=== PATIENT | male | born 1985 | race Caucasian/White ===

== ENCOUNTER 2019-04-06 14:20 | Outpatient (CLI) | payer BC | END 2019-04-06 14:21 | disposition home or self-care (01) | LOC: CTENTCT 14:20 | PROVIDERS: ATTEND Specialist | DX: J32.9 Chronic sinusitis, unspecified (principal) | CPT/HCPCS: 70486 ==

== ENCOUNTER 2019-05-05 07:38 | Day surgery (SDC) | payer BC ==
[2019-05-04 11:24] VITALS: BMI 23.7
[2019-05-05] MEDS ORDERED: AFRIN NASAL MIST 15 ML BOT ONE ×2 (08:07→09:06)
[2019-05-05] MEDS ORDERED: Scopolamine 1.5 mg/72 hour Patch ONE (08:31)
[2019-05-05] MEDS ORDERED: EPINEPHrine 1 MG/ML AMP ONE (09:06)
[2019-05-05] MEDS ORDERED: Lidocaine 1% w/Epinephrine 1:100K 20 ML VIAL ONE (09:06)
[2019-05-05] MEDS ORDERED: Fentanyl 100 MCG/2 ML VIAL ONE ×2 (09:20→10:47)
[2019-05-05] MEDS ORDERED: Ondansetron PF 4 MG/2 ML Vial ONE (09:22)
[2019-05-05] MEDS ORDERED: Dexamethasone 20 MG/5 ML VIAL ONE (09:22)
[2019-05-05] MEDS ORDERED: Lidocaine 1% PF 5 ML VIAL ONE (09:22)
[2019-05-05] MEDS ORDERED: PROPOFOL 200 MG/20 ML VIAL ONE (09:22)
[2019-05-05] MEDS ORDERED: methylPREDNISolone Acetate 40 mg/ml Vial ONE (09:30)
[2019-05-05] MEDS ORDERED: Promethazine HCl 25 MG/ML VIAL ONE (12:09)
--- NOTE | 2019-05-06 09:25 | OP ---
DATE OF PROCEDURE: 05/05/2019 PREOPERATIVE DIAGNOSES: 1. Chronic frontal sinusitis. 2. Chronic ethmoid sinusitis. POSTOPERATIVE DIAGNOSES: 1. Chronic frontal sinusitis. 2. Chronic ethmoid sinusitis. PROCEDURES PERFORMED: 1. Bilateral frontal sinusotomy using extended drill out (Lothrop procedure). 2. Bilateral nasal endoscopy with total ethmoidectomy. 3. Stereotactic image guidance with the use of a landmark stereotactic image guidance. PROCEDURE IN DETAIL: After the patient was identified and brought to the operating room , placed on the operating table in supine position. General endotracheal anesthesia was obtained. The patient was positioned for surgery. The nose was prepped with topical decongestants and was then injected with 1% lidocaine with 1:100,000 epinephrine. Also, topical adrenaline was placed intranasally to facilitate vasoconstriction. The patient had previous sinus surgery with stenosis and new bone formation in the frontal recess bilaterally worse on the left and also had extensive ethmoid disease, ethmoid polypoid disease, and residual shrouds of bone mucosa were removed under endoscopic visualization with the assistance of the landmarks. We then proceeded to address the frontal sinus. There was very thick bony that isolated the frontal sinus both laterally and medially from the nasal cavity and use of alexa, we were able to drill down this bone until we were able to gain access to the frontal sinus. We then enlarged that opening carefully under stereotactic computer-guided imaging. Ultimately, we had large frontal sinusotomies performed and purulence was released and evacuated from each. Also, the ethmoids were addressed at this similar time. We then placed cotton form type steroid impregnated splints in the both frontal sinuses to hopefully facilitate patency and minimize scarring postop. The patient was then extubated and taken to recovery room in stable condition prior to discharge home. Job ID: [id number]
== END 2019-05-05 13:20 | disposition home or self-care (01) ==
LOC: SDC 07:38
PROVIDERS: ATTEND Specialist
PROC: 09BV8ZZ Excision of Left Ethmoid Sinus, Via Natural or Artificial Opening Endoscopic (ICD-10-PCS; principal; 2019-05-05)
PROC: 8E09XBZ Computer Assisted Procedure of Head and Neck Region (ICD-10-PCS; principal; 2019-05-05)
PROC: 09BS8ZZ Excision of Right Frontal Sinus, Via Natural or Artificial Opening Endoscopic (ICD-10-PCS; principal; 2019-05-05)
PROC: 09BT8ZZ Excision of Left Frontal Sinus, Via Natural or Artificial Opening Endoscopic (ICD-10-PCS; principal; 2019-05-05)
PROC: 09BU8ZZ Excision of Right Ethmoid Sinus, Via Natural or Artificial Opening Endoscopic (ICD-10-PCS; principal; 2019-05-05)
DX: J32.8 Other chronic sinusitis (principal); J33.9 Nasal polyp, unspecified; J34.3 Hypertrophy of nasal turbinates; J30.1 Allergic rhinitis due to pollen
CPT/HCPCS: J0171; J0690; J1030; J1100; J2001; J2405; J2550; J2704; J3010

== ENCOUNTER 2020-10-09 16:24 | Inpatient (IN) | payer BC ==
[2020-10-09 17:27] LABS: #Basophils 0.1 thou/uL (0.0-0.2); #Eosinphils 0.1 thou/uL (0.0-0.7); #Lymphocytes 2.2 thou/uL (1.20-3.40); #Monocytes 0.7 thou/uL (0.11-0.59); #Neutrophils 4.7 thou/uL (1.40-6.50); %Basophils 0.8 % (0.0-1.0); %Eosinophils 0.7 % (0.0-10.0); %Lymphocytes 28.4 % (21.0-51.0); %Monocytes 9.2 % (0.0-10.0); %Neutrophils 60.8 % (42.0-75.0); Hemoglobin 14.7 g/dL (14.0-18.0); Mean Corpuscular HGB CONC 33.6 g/dL (32.0-36.0); Mean Corpuscular Hemoglobin 30.7 pg (27.0-31.0); Mean Corpuscular Volume 91.5 fL (78.0-98.0); Mean Platelet Volume 7.6 fL (7.4-10.4); Platelet Count 213 thou/uL (130-400); RBC Distribution Width 11.6 % (11.5-14.5); Red Blood Cell (RBC) Count 4.77 mill/uL (4.70-6.10); White Blood Cell (WBC) Count 7.8 thou/uL (4.8-10.8)
[2020-10-09] MEDS ORDERED: Midazolam HCl 2 mg/2 ml Vial ONE (17:55)
[2020-10-09 17:57] LABS: ALT (SGPT) 34 U/L (8-55); AST (SGOT) 18 U/L (5-34); Alkaline Phosphatase 50 U/L (40-110); Anion Gap 16 mmol/L (10-20); BUN (Urea Nitrogen) 14 mg/dL (8.9-20.6); Bilirubin, Total 0.6 mg/dL (0.2-1.2); Calc. Creatinine Clearance 0 mL/min (70-130); Calcium 8.9 mg/dL (7.8-10.44); Carbon Dioxide 19 mmol/L (22-29); Chloride 105 mmol/L (98-107); Globulin 3.8 g/dL (2.4-3.5); Glucose 82 mg/dL (70-105); Protein, Total 7.8 g/dL (6.0-8.3); Sodium 136 mmol/L (136-145)
[2020-10-09] MEDS ORDERED: Vancomycin 1 GM/200 ML BAG ONE ×2 (17:59→22:01)
[2020-10-09] MEDS ORDERED: cefTRIAXone\\ROCEPHIN 2 GM VIAL ONE (17:59)
[2020-10-09] MEDS ORDERED: Acyclovir Sodium 750 MG in Sodium Chloride 0.9% 250 ML 250 ML IVPB SCH (18:30)
[2020-10-09] MEDS ORDERED: Acyclovir Sodium 850 MG in Sodium Chloride 0.9% 250 ML 250 ML IVPB SCH (18:30)
[2020-10-09] MEDS ORDERED: Haloperidol Lactate 5 MG/ML VIAL ONE (18:57)
[2020-10-09] MEDS ORDERED: Ondansetron PF 4 MG/2 ML Vial IVP PRN (22:11)
[2020-10-09] MEDS ORDERED: Lorazepam 2 MG/ML VIAL SLOW IVP PRN (22:54)
[2020-10-09 23:00] LABS: Acetaminophen Less than 6.0 mcg/mL (10.0-30.0); Alcohol Less than 10 mg/dL (Less than 10); Salicylate Less than 8.0 mg/dL (15.0-30.0)
[2020-10-09 23:20] VITALS: BMI 26.8
[2020-10-10 01:36] LABS: Actual Bicarbonate (HCO3a) 17.6 mEq/L (22-28); Base Excess (BEa) -2.4 mEq/L (-2.0 to +3.0); Calcium, Ionized (arterial) 1.11 mmol/L (1.12-1.30); Carboxyhemoglobin (COHb) 0.8 gm% (0.0-3.0); Hemoglobin (Hb) 15.8 g/dL (14.0-18.0); Potassium - ABG Lab 4.19 mmol/L (3.70-5.30); pH, Arterial 7.54 (7.35-7.45)
[2020-10-10 01:39] LABS: CO2 Tension 21.2 mmHg (35.0-45.0); O2 Tension (PaO2), arterial 26.3 mmHg (80.0-100.0)
[2020-10-10] MEDS ORDERED: Lorazepam 2 MG/ML VIAL SLOW IVP SCH (01:45)
[2020-10-10 01:57] LABS: Hemoglobin 15.7 g/dL (14.0-18.0); Mean Corpuscular HGB CONC 33.7 g/dL (32.0-36.0); Mean Corpuscular Hemoglobin 31.7 pg (27.0-31.0); Mean Corpuscular Volume 94.1 fL (78.0-98.0); Mean Platelet Volume 7.4 fL (7.4-10.4); Platelet Count 241 thou/uL (130-400); RBC Distribution Width 11.7 % (11.5-14.5); Red Blood Cell (RBC) Count 4.94 mill/uL (4.70-6.10); White Blood Cell (WBC) Count 14.6 thou/uL (4.8-10.8)
[2020-10-10 02:06] LABS: Amphetamine Not Detected (NotDetected); Barbiturates Screen Not Detected (NotDetected); Benzodiazepine Screen Not Detected (NotDetected); Cocaine Metabolite Screen Not Detected (NotDetected); Medtox Control Line Valid? VALID (VALID); Medtox Reader # READER 4; Methadone Not Detected (NotDetected); Methamphetamine Not Detected (NotDetected); Opiate Screen Not Detected (NotDetected); Oxycodone Screen Not Detected (NotDetected); Phencyclidine (PCP) Not Detected (NotDetected); THC/Cannabinoid Screen Not Detected (NotDetected); Tricyclic Screen Not Detected (NotDetected)
[2020-10-10 02:21] LABS: Eosinophils 1 % (0-10); Lymphocytes 39 % (21-51); MDiff Complete? YES; Metamyelocyte 1 % (0-0); Monocytes 14 % (0-10); Neutrophil 45 % (42-75); Platelet Morphology Comment Appears Adequate
[2020-10-10 03:13] LABS: Calcium 9.2 mg/dL (7.8-10.44); Glucose 84 mg/dL (70-105)
[2020-10-10 03:17] LABS: Calc. Creatinine Clearance 128 mL/min (70-130)
[2020-10-10 03:18] LABS: BUN (Urea Nitrogen) 13 mg/dL (8.9-20.6); Carbon Dioxide 9 mmol/L (22-29); Chloride 109 mmol/L (98-107); Potassium 4.3 mmol/L (3.5-5.1); Sodium 138 mmol/L (136-145)
[2020-10-10 03:19] LABS: Anion Gap 24 mmol/L (10-20)
[2020-10-10] MEDS ORDERED: Lorazepam 2 MG/ML VIAL SLOW IVP PRN (03:38)
[2020-10-10] MEDS: Acyclovir Sodium 750 MG in Sodium Chloride 0.9% 250 ML 250 ML IVPB SCH ×3 (04:17→19:57)
[2020-10-10 04:32] LABS: Bacteria/HPF None Seen HPF (None Seen); Bilirubin Negative (Negative); Blood, Urine Negative (Negative); Clarity Clear (Clear); Glucose, Urine (Dipstick) Normal (Negative); Ketone, Urine 40 mg/dL (Negative); Leukocyte Negative Leu/uL (Negative); Nitrite Negative (Negative); Protein, Urine (Dipstick) Negative (Neg-Trace); RBC/HPF 0-3 HPF (0-3); Specific Gravity, Urine 1.013 (1.002-1.036); Squamous Epithelial None Seen HPF (0-3); Urobilinogen Normal mg/dL (Less than 2); WBC/HPF None Seen HPF (0-3); pH, Urine 6.5 (5.0-9.0)
[2020-10-10 04:34] LABS: Urine Culture Reflex No No
[2020-10-10] MEDS: Vancomycin 1.5 GRAM/300 ML BAG 1.5 GM in Premix Bag 1 BAG IVPB SCH ×3 (06:03→22:20)
[2020-10-10] MEDS: cefTRIAXone\\ROCEPHIN 2 GM in Sodium Chloride 0.9% 100 ML IVPB SCH (08:25)
[2020-10-10 10:40] LABS: Lactic Acid 1.2 mmol/L (0.5-2.2)
[2020-10-10 10:42] LABS: Anion Gap 16 mmol/L (10-20); BUN (Urea Nitrogen) 12 mg/dL (8.9-20.6); Calc. Creatinine Clearance 146 mL/min (70-130); Calcium 8.9 mg/dL (7.8-10.44); Carbon Dioxide 21 mmol/L (22-29); Chloride 104 mmol/L (98-107); Glucose 91 mg/dL (70-105); Potassium 3.9 mmol/L (3.5-5.1); Sodium 137 mmol/L (136-145)
[2020-10-10 11:03] LABS: Free T4 (Free Thyroxine) 1.07 ng/dL (0.70-1.48); T4 7.9 ug/dL (4.87-11.72)
[2020-10-10] MEDS ORDERED: cefTRIAXone\\ROCEPHIN 2 GM in Sodium Chloride 0.9% 100 ML IVPB SCH (18:00)
[2020-10-10] MEDS: Acetaminophen 325 MG TAB PO PRN (20:20)
[2020-10-11] MEDS ORDERED: VANCOMYCIN 1.25 GM/250 ML BAG 1.25 GM in Premix Bag 1 BAG IVPB SCH ×2 (02:00→10:00)
[2020-10-11] MEDS: Acyclovir Sodium 750 MG in Sodium Chloride 0.9% 250 ML 250 ML IVPB SCH (03:04)
[2020-10-11] MEDS: Acetaminophen 325 MG TAB PO PRN (04:16)
[2020-10-11 08:12] LABS: #Basophils 0.1 thou/uL (0.0-0.2); #Eosinphils 0.4 thou/uL (0.0-0.7); #Lymphocytes 2.8 thou/uL (1.20-3.40); #Monocytes 0.8 thou/uL (0.11-0.59); #Neutrophils 3.2 thou/uL (1.40-6.50); %Basophils 0.9 % (0.0-1.0); %Eosinophils 5.8 % (0.0-10.0); %Lymphocytes 38.8 % (21.0-51.0); %Neutrophils 43.6 % (42.0-75.0); Hemoglobin 14.9 g/dL (14.0-18.0); Mean Corpuscular Hemoglobin 30.5 pg (27.0-31.0); Mean Corpuscular Volume 92.4 fL (78.0-98.0); Mean Platelet Volume 7.5 fL (7.4-10.4); Platelet Count 222 thou/uL (130-400); RBC Distribution Width 11.8 % (11.5-14.5); Red Blood Cell (RBC) Count 4.89 mill/uL (4.70-6.10); White Blood Cell (WBC) Count 7.2 thou/uL (4.8-10.8)
[2020-10-11 08:34] LABS: ALT (SGPT) 36 U/L (8-55); AST (SGOT) 23 U/L (5-34); Alkaline Phosphatase 50 U/L (40-110); Anion Gap 14 mmol/L (10-20); BUN (Urea Nitrogen) 12 mg/dL (8.9-20.6); Bilirubin, Total 0.6 mg/dL (0.2-1.2); CK (CPK) 138 U/L (30-200); Calc. Creatinine Clearance 153 mL/min (70-130); Carbon Dioxide 19 mmol/L (22-29); Chloride 109 mmol/L (98-107); Globulin 3.7 g/dL (2.4-3.5); Glucose 85 mg/dL (70-105); Magnesium 2.2 mg/dL (1.6-2.6); Potassium 4.1 mmol/L (3.5-5.1); Protein, Total 7.7 g/dL (6.0-8.3); Sodium 138 mmol/L (136-145)
[2020-10-11] MEDS: cefTRIAXone\\ROCEPHIN 2 GM in Sodium Chloride 0.9% 100 ML IVPB SCH (09:18)
[2020-10-11 12:39] VITALS: TEMP 98.4
[2020-10-11] MEDS ORDERED: Doxycycline 100 MG CAP PO SCH (21:00)
[2020-10-12] MEDS ORDERED: Enoxaparin Sodium 40 MG/0.4 ML SYRINGE SC SCH (09:00)
== END 2020-10-11 12:52 | disposition home or self-care (01) | DRG 92 ==
LOC: ERS 16:24 → IMCU/EMU 21:12
PROVIDERS: ADMIT Internal Medicine; ATTEND Internal Medicine
PROC: 009U3ZX Drainage of Spinal Canal, Percutaneous Approach, Diagnostic (ICD-10-PCS; principal; 2020-10-09)
DX: G92 Toxic encephalopathy (principal); E87.2 Acidosis; Z20.822 Contact with and (suspected) exposure to COVID-19; T44.995A Adverse effect of other drug primarily affecting the autonomic nervous system, initial encounter; J30.9 Allergic rhinitis, unspecified; J06.9 Acute upper respiratory infection, unspecified; Z79.899 Other long term (current) drug therapy
CPT/HCPCS: 36415; 62270; 70450; 70551; 71045; 80048; 80053; 80202; 80306; 80307; 81001; 82140; 82533; 82550; 82805; 83605; 83735; 83930; 84145; 84436; 84439; 84443; 84481; 85025; 85379; 86140; 87040; 93005; 95816; 95819; 95957; 96365; 96367; 96368; 96375; 99152; 99292; J0133; J0696; J1630; J2060; J2250; J3370; J3490; J7050